=== PATIENT | female | born 1990 | race Caucasian/White ===

== ENCOUNTER 2020-11-17 12:05 | Emergency (ER) | payer SELFPAY ==
[~2020-11-17] VITALS: Ht 162.6 cm; Wt 108.9 kg
--- NOTE | 2020-11-17 12:28 | NUR ---
BALDEV FROM HER WORK PLACE. TO ER BED 5. AAOX4. NOT IN RESP DISTRESS, BREATHING EVEN AND UNLABORED. BROUGHT IN FOR SEIZURE VS SYNCOPE. PER PT, SHE WAS TYPING AND WOKE UP WITH PARAMEDICS. BASE ON THE VIDEO THAT WAS SHOWED TO HER BY HER CO WORKERS. PT PASSED OUT THEN THEN STARTED CONVULSING ON THE FLOOR. PT DOES NOT THINK SHE HIT HER HEAD NO NOTED HEAD TRAUMA NOR ORAL TRAUMA. PT REPORTS THAT SHE FEELS TIRED. SHE REPORTS THAT THIS IS THE FIRST TIME THIS HAPPENED. PT ON MONITOR. SEIZURE PRECAUTION INPLACE. AWAITING ORDERS
[2020-11-17 13:34] LABS: BASOPHILS # (AUTO) 0.1 /CMM (0.0-0.2); BASOPHILS % (AUTO) 1.1 % (0.0-2.0); EOSINOPHILS % (AUTO) 0.1 % (0.0-6.0); HEMATOCRIT 39 % (33-45); LYMPHOCYTES # (AUTO) 1.9 /CMM (0.8-4.8); LYMPHOCYTES % (AUTO) 23.8 % (20.0-44.0); MEAN CORPUSCULAR HGB CONC 33 g/dl (31.0-36.0); MEAN CORPUSCULAR VOLUME 88 fL (82-100); MONOCYTES # (AUTO) 0.4 /CMM (0.1-1.30); MONOCYTES % (AUTO) 5.7 % (2.0-12.0); NEUTROPHILS # (AUTO) 5.5 /CMM (1.8-8.9); NEUTROPHILS % (AUTO) 69.3 % (43.0-81.0); PLATELET COUNT (AUTO) 220 /CMM (150-450); RED BLOOD CELL COUNT(AUTO) 4.47 MIL/uL (4.0-5.2); WHITE BLOOD COUNT (AUTO) 7.9 K/uL (4.3-11.0)
[2020-11-17 13:45] LABS: CALCIUM, SERUM 8.6 mg/dL (8.5-10.1); CREATININE 1.1 mg/dL (0.6-1.3); POTASSIUM 3.8 mmol/L (3.5-5.1)
[2020-11-17 13:50] LABS: ALBUMIN 3.6 g/dL (3.4-5.0); BILIRUBIN,TOTAL 0.2 mg/dL (0.2-1.0); TOTAL PROTEIN, SERUM 7.1 g/dL (6.4-8.2)
[2020-11-17] MEDS ORDERED: ACETAMINOPHEN ES 500 MG TABLET ONE (13:52)
--- NOTE | 2020-11-17 13:59 | NUR ---
WAIVER SIGNED BY THE PATIENT
[2020-11-17] MEDS ORDERED: ACETAMINOPHEN 325 MG TABLET PO ONE (14:00)
--- NOTE | 2020-11-17 15:21 | NUR ---
Patient discharged to home in stable condition. Written and verbal after care instructions given. Patient verbalizes understanding of instruction.IV removed. Catheter intact and site benign. Pressure and 4x4 applied to site. No bleeding noted. Pt ambulatory with a steady gait
[2020-11-17 15:43] VITALS: BP 119/80
--- NOTE | 2020-11-17 18:44 | NUR ---
NEW ONSET SEIZURE WAS REPORTED TO [facility]. NOTIFICATION WAS SENT VIA FAX TO [phone].
== END 2020-11-17 15:21 | disposition home or self-care (01) ==
LOC: ER 12:11
DX: R56.9 Unspecified convulsions (principal); F32.9 Major depressive disorder, single episode, unspecified; Z90.49 Acquired absence of other specified parts of digestive tract
CPT/HCPCS: 36415; 70450-TC; 80048-TC; 80076-TC; 85025-TC